=== PATIENT | female | born 1945 | race Caucasian/White ===

== ENCOUNTER → 2016-12-07 | Outpatient (CLI) | payer MEDICARE ==
[~2016-12-07] VITALS: Ht 160 cm; Wt 55.3 kg
[~2016-12-07] MED LIST: AC500T PO; AMIT25TA9 PO; CIPR500S2 PO; CYAN100081 PO; DIGO125T PO; DILT120C PO; DILT240C96 PO; DRON400T PO; METO-272 PO; METO-352 PO; METO-451 PO; METR500T PO; MTP25TSR PO; OXYC-309 PO; REGADENOSON 0.4 MG/5 ML SYR (LEXISCAN) IV ONE; ROSU5TAB PO; SENN1TAB76 PO; WARF2.5T56 PO; WRF2.5T PO; metoprolol er PO
--- OUTSIDE RECORDS SUMMARY | 2016-12-07 08:12 | XMS REPORT | Continuity of Care Document ---
Author Author [facility] Organization [facility] Address Unknown Phone Unavailable Care Team Providers Care Supply Chain Generalist Name Role Phone Jez Jones PCP [phone] Source Comments Some departments are not documenting in the electronic medical record. If you do not see the information that you expected, contact Release of Information in the Health Information Management department at [phone] for further assistance in locating additional records.[facility] Active Allergies and Adverse Reactions Allergen Noted Date Severity Reactions Comments Codeine 12/05/2014 NAUSEA AND VOMITING Current Medications Prescription Sig. Disp. Refills Start End Date Status Date warfarin (COUMADIN) 2.5 Alternate 2mg and 3mg Active mg tablet rosuvastatin (CRESTOR) 5 Take 5 mg by mouth at Active mg tablet bedtime daily. gabapentin (NEURONTIN) Take 100 mg by mouth Active 100 mg capsule three times daily. amLODIPine (NORVASC) 5 mg Take 1 Tab by mouth 90 Tab 3 03/25/20 Active tablet daily. 16 donepezil (ARICEPT) 5 mg Take 5 mg by mouth at Active tablet bedtime daily. potassium chloride SR Take 2 Tabs by mouth 60 Cap 0 11/08/19 Active (K-DUR) 20 mEq tablet daily. Start today 11/08. 17 Take with a meal and a full glass of water. Active Problems Problem Noted Date S/P ablation of atrial fibrillation 05/07/2016 Overview: 05/07/16 Dr. Ken Atrial fibrillation (HCC) 05/07/2016 Chronic anticoagulation, on warfarin 05/06/2016 Last Assessment & Plan: Unfortunately, her INR today is 3.5. After discussing with Dr. Ken, she was instructed to hold her warfarin today and tomorrow. We will do a stat INR on admit. We did discuss that if she is supra-therapeutic we may need to once again reschedule her procedure. Persistent atrial fibrillation (HCC) Overview: Diagnosed 1995, managed with digoxin and warfarin until 06/21/14. Hospitalized at [facility] for palpitations, chest pain and dizziness. Found to be in AF with RVR, converted with IV Cardizem. Discharged on PO Cardizem. Returned to ED 06/25/14 back in AF with RVR. Cardizem gtt controlled rate but did not convert to NSR. Gtt discontinued d/t bradycardia. Digoxin discontinued and Multaq initiated. Remained in NSR but it was discontinued d/t cost. Replaced with amiodarone. 06/22/14: Echo: Via [facility]: EF 60% Left atrium is normal in size LA=3.3 cm. Mild mitral and tricuspid regurgitation. Estimated PAP of 35- 40 mmHg 12/06/14: EP study: Afib ablation by MPE. L ast Assessment & Plan: The details, benefits, and risks of the procedure were once again reviewed including, but not limited to, , myocardial infarction, stroke, cardiac perforation, pulmonary vein stenosis, diaphragmatic paralysis via phrenic nerve injury, catheter entrapment, bleeding, infection, stroke, atrial esophageal fistula and atrial bronchial fistula. Ms. Rhodes verbalized understanding of the procedure and the risks. All of her questions were answered to her satisfaction and the patient wishes to proceed with redo atrial fibrillation/left atrial antral isolation radiofrequency ablation. Essential hypertension Overview: 06/24/14: Regadenoson MPI: [facility]: EF 79% No evidence of significant myocardial ischemia or infarction. Normal regional wall motion. L ast Assessment & Plan: Slightly elevated today. We will continue to monitor. Dyslipidemia Thoracic outlet syndrome Most Recent Encounters Date Type Specialty Providers Description 11/16/2016 Anticoagulation Cardiology Vivi Callahan, [place] Anticoagulation - INR 2.[address] jez Jones 11/08/2016 Telephone Cardiology Vivi Callahan RN Lab Results W/ medication Changes - K 3.3 add med recheck 11/1111/05/2016 [facility] Cardiology Luisito Ken MD Encounter 11/05/2016 Office Visit Cardiology Luisito Ken MD Cardiac Eval - f/u 05/07 procedure; AFIB 10/13/2016 Telephone Cardiology Kasandra Hare RN Test - results from ELR 09/28/2016 [facility] Cardiology Luisito Ken MD Encounter 09/13/2016 Documentation Cardiology Cora Chin RN Anticoagulation - INR 3.0, PCP managed Social History Tobacco Use Types Packs/Day Years Used Date Current Every Day Smoker Cigarettes 0.25 40 Quit: 06/29/2014 Smokeless Tobacco: Never Used Alcohol Use Drinks/Week oz/Week Comments No Last Filed Vital Signs Vital Sign Reading Time Taken Blood Pressure 134/90 11/05/2016 3:14 PM [employer] P[employer]ER Pulse 76 11/05/2016 3:14 PM [employer] Temperature 37 C (98.6 F) 05/08/2016 6:30 AM CDT Respiratory Rate - - Height 1.613 m (5' 3.5") 11/05/2016 3:14 PM [employer] P[employer] Weight 56.427 kg (124 lb 6.4 oz) 11/05/2016 3:14 PM [employer] P[employer]ER Body Mass Index 21.69 11/05/2016 3:14 PM ME[employer] P[employer]ER Oxygen Saturation 94% 05/08/2016 6:30 AM CDT Plan of Care Health Maintenance Due Date Last Done Comments Physical (Comprehensive) 1952 Exam Pertussis Vaccine 1955 Tetanus Vaccine 1961 Breast Cancer Screening 1984 Colorectal Cancer 1994 Screening Shingles Vaccine 2004 Osteoporosis Screening 2009 Prevnar/Pneumovax (#1) 2009 Influenza Vaccine 07/01/2016 Results from Last 3 Months PROTIME INR (PT) (11/11/2016)Only the most recent of 3 results within the time period is included. Component Value Range INR 2.5 Specimen Blood THYROID STIMULATING HORMONE-TSH (11/05/2016 4:15 PM) Component Value Range TSH 0.733 0.35-5.00 MCU/ML Specimen Blood MAGNESIUM (11/05/2016 4:15 PM) Component Value Range Magnesium 2.4 1.6-2.6 mg/dL Specimen Blood COMPREHENSIVE METABOLIC PANEL (11/05/2016 4:15 PM) Component Value Range Sodium 140 137-147 MMOL/L Potassium 3.3 (L) 3.5-5.1 MMOL/L Chloride 103 98-110 MMOL/L Glucose 82 70-100 MG/DL Blood Urea Nitrogen 9 7-25 MG/DL Creatinine 0.70 0.4-1.00 MG/DL Calcium 10.0 8.5-10.6 MG/DL Total Protein 7.8 6.0-8.0 G/DL Total Bilirubin 0.6 0.3-1.2 MG/DL Albumin 4.9 3.5-5.0 G/DL Alk Phosphatase 96 25-110 U/L AST (SGOT) 16 7-40 U/L CO2 28 21-30 MMOL/L ALT (SGPT) 11 7-56 U/L Anion Gap 9 3-12 eGFR Non >60Comment: >60 mL/min The eGFR is not validated for use in drug dosing adjustments. Continue to use estimated creatinine clearance per dosing reference text. Please contact the Clinical Pharmacist for questions. eGFR >60Comment: >60 mL/min The eGFR is not validated for use in drug dosing adjustments. Continue to use estimated creatinine clearance per dosing reference text. Please contact the Clinical Pharmacist for questions. Specimen Blood EVENT MONITOR (09/28/2016 1:02 PM) Impressions : Abnormal with 3 episodes of very brief ATACH.At this point based on these results I would not reinitiate Sotalol. Although she did not report symptoms she had reported during her office visit symptoms of "hard feeling beats" which likely are related to her isolated ectopy. Although her symptoms may also be related to these are related to brief episodes of Atrial Tachycardia. Narrative Note the patient is status post redo AFIB ablation from April 2016. Her subtle and just been discontinued. His event monitor is done while she is off of Sotalol. 12 transmissions sent.All appear to be auto transmissions, that is none appear to be clearly Sx or pt activated. The First transmission is reported as having advanced heart block with a 3 second pause overall appears to be related to artifact and not a true pause. However transmission #2, 4, and 7 all show sinus rhythm with 7, 12, and 6 beats of what appears to be in atrial tachycardia with a cycle length ranging from 360-320 MS.At times the P wave is very clearly visible at other times it is very within the T-wave. Again these are all asymptomatic and very brief period the other 5 transmissions with one exception documents sinus rhythm with PACs. An occasional PVCs. One transmission is a sinus rhythm at 75 bpm.
[2016-12-07] MEDS: CATHETER FLUSH 10 ML SYR IV PRN ×2 (08:37→09:57)
[2016-12-07 09:54] VITALS: BP 118/58
--- NOTE | 2016-12-08 09:24 | STRESS TEST ---
PROCEDURE PHYSICIAN: REINA KERR DATE OF PROCEDURE: 12/07/2016 RESTING AND POST REGADENOSON TECHNETIUM 99M TETROFOSMIN SPECT CT IMAGING: ORDERING PHYSICIAN: Dr. Kerr. PRIMARY PHYSICIAN: Dr. Warren. OTHER PHYSICIAN: Mahsa Jones APRN CLINICAL DIAGNOSIS: 1. Chest discomfort. 2. Hypertension. 3. Paroxysmal atrial fibrillation. 4. Tobacco use. Baseline images were carried out after injection of 9.65 mCi of technetium 99m tetrofosmin. This was followed by 0.4 mg of regadenoson and 28 mCi of technetium 99m tetrofosmin for stress imaging. The electrocardiogram showed sinus rhythm with incomplete right bundle branch block and nonspecific T-wave abnormality. The electrocardiogram did not change significantly with regadenoson infusion. Review of images at rest and following stress, does not indicate any significant perfusion defects consistent with significant myocardial ischemia or infarction. Gated images show normal global left ventricular systolic function with normal regional wall motion. Left ventricular ejection fraction is calculated to be 78%. Left ventricular end-diastolic volume is 30 mL. TID is absent (1.06). CONCLUSIONS: 1. No evidence of significant myocardial ischemia or infarction on this study. 2. Normal regional wall motion. 3. Normal global left ventricular systolic function with a calculated ejection fraction of 78%. 4. Normal left ventricular cavity size. Job ID: [id number] Dictated Date: 12/07/2016 16:49:30 Medication Aid Date: 12/08/2016 09:21:17 / cierra
== END ==
LOC: CARD 08:07
PROVIDERS: ATTEND Internal Medicine Cardiovascular Disease
DX: Z51.81 Encounter for therapeutic drug level monitoring (principal); I10 Essential (primary) hypertension; R07.89 Other chest pain; I48.0 Paroxysmal atrial fibrillation; Z72.0 Tobacco use; Z78.9 Other specified health status
CPT/HCPCS: 78452; 93017